=== PATIENT | female | born 1985 | race Hispanic/Latino ===

== ENCOUNTER 2020-01-07 08:45 | Outpatient (RCR) | payer OTHER | END 2020-01-15 | LOC: PT 08:45 | PROVIDERS: ATTEND Specialist | DX: S82.892A Other fracture of left lower leg, initial encounter for closed fracture (principal); M25.572 Pain in left ankle and joints of left foot; M25.672 Stiffness of left ankle, not elsewhere classified; M62.81 Muscle weakness (generalized) ==